=== PATIENT | female | born 1990 | race Hispanic/Latino ===

== ENCOUNTER 2024-11-07 18:12 | Emergency (ER) | payer OTHER ==
[~2024-11-07] VITALS: Ht 165.1 cm; Wt 100.2 kg
--- NOTE | 2024-11-07 19:22 | HMCIMG ---
FINGER(S) 2+VWS LT REASON: injury ring finger TECHNIQUE: 3 views were obtained. FINDINGS: There is dislocation of proximal interphalangeal joint of the left fourth finger. The distal segment is displaced posteriorly. There is a tiny evulsion fracture proximal base of the middle phalanx. IMPRESSION: 1. Posteriorly displaced dislocation of the proximal interphalangeal joint left fourth finger, there is a tiny chip fracture as well.
[2024-11-07] MEDS: ondanSETRON 4MG INJ IVP SCH (19:39)
[2024-11-07] MEDS: morPHINE 4 MG SYG IVP SCH (19:43)
[2024-11-07] MEDS: LIDOCAINE HCL 1% 20 ML VIAL INJ SCH (20:10)
--- NOTE | 2024-11-07 20:22 | ERN ---
ED Note History of Present Illness Stated Complaint: FINGER INJURY Chief Complaint: Finger Injury Time Seen by MD: 18:21 Time Seen by Midlevel: 18:21 Dictation: The patient is a 34-year-old female with no past medical history who presents to the emergency department with complaints of left ring finger pain after she injured or playing football. Denies any other injuries. Allergies: Coded Allergies: No Known Drug Allergies (Unverified Allergy, Unknown, 11/07/24) Home Meds Active Scripts Ibuprofen (Ibuprofen 800 mg Tab) 800 Mg Tab, 800 MG PO Q8H PRN for fever or pain for 30 Days, #30 TAB 0 Refills Prov:BIJAL DUNN [employer] MANAGER 11/07/24 Past Medical History Past Medical History: No Pertinent History Surgical History: None RN Note Reviewed/Agreed w/PFSH: Yes Review of System Dictation Constitutional: Negative for fever,chills, and weight loss Eyes: Negative for injury, pain,redness, and discharge ENT: Negative for injury,pain or swelling Cardiovascular: Negative for chest pain, palpitations, and edema Respiratory: Negative for shortness of breath, cough, and wheezing, Abdomen/GI: Negative for abdominal pain, nausea, vomiting, diarrhea, and constipation Back: Negative for injury and pain : Negative for injury, bleeding and discharge MS/Extremity: Negative for injury positive for left ring finger injury Skin: Negative for rash, and discoloration Neuro: Negative for headache, weakness, numbness, tingling, and seizure Psych: Negative for suicide ideation, homicidal ideation, and hallucinations Initial Vital Sign VS Vital Signs Date Time Temp Pulse Resp B/P (MAP) Pulse Ox O2 Delivery O2 Flow Rate FiO2 11/07/24 18:13 98.8 78 18 110/75 100 0 11/07/24 18:16 Room Air* 21 Physical Exam Dictation Vital Signs reviewed General Appearance: Alert, oriented x 3, no acute distress, well developed, nourished. Head and Face: non-traumatic. Eyes: PERRL, pink conjunctivas, eyelid no trauma, anterior chamber with arcus senilis. Ears: Pinnas intact and no signs of trauma or erythema ear canals clear and no discharge TM no erythema Nose: No discharge, no bleeding. Oropharynx: Mouth normal, tongue pink. pharynx clear,no erythema, tonsils no exudates, no abscesses noted, mucous membrane moist Neck: Supple, non-tender, no thyromegaly, no masses, no JVD, no bruits Breast:Deferred Chest:No tenderness, no crepitus, no paradoxical movement, no retractions Lungs:Clear, well-ventilated, symmetric, no rales, no wheezing, no rhonchi, no stridor, good breath sounds bilaterally Heart: Regular rate, regular rhythm, no murmur, no gallops Vascular: no peripheral edema, Abdomen: Soft, positive bowel sounds, nondistended, no guarding, nontender, no rebound, no masses no hepatomegaly, no splenomegaly, no Spaulding's sign, no hernias. Rectal: Deferred Genital: Deferred Neurological: Normal speech, motor function intact, sensory function intact Musculoskeletal: Neck nontender, full range of motion, back nontender, full range of motion, Extremities: nontender, full range of motion , left 4th digit deformity, limited ROM, cap refill less than 2 sec, no open wounds. Skin: Color pink, dry, no turgor, no rash, no lacerations, no abrasions, no contusions. Lymphatic: Deferred Results (Laboratory/Radiology) Laboratory/Radiology Laboratory Tests Test 11/07/24 19:33 Serum Test, Qualitative NEGATIVE (NEGATIVE) REASON: injury ring finger ORDERING PHYSICIAN: BIJAL DUNN [employer] MANAGER PROCEDURE: FINGER LT - FINGER(S) 2+VWS LT FINGER(S) 2+VWS LT REASON: injury ring finger TECHNIQUE: 3 views were obtained. FINDINGS: There is dislocation of proximal interphalangeal joint of the left fourth finger. The distal segment is displaced posteriorly. There is a tiny evulsion fracture proximal base of the middle phalanx. IMPRESSION: 1. Posteriorly displaced dislocation of the proximal interphalangeal joint left fourth finger, there is a tiny chip fracture as well. REASON: left ringle finger post reduction ORDERING PHYSICIAN: BIJAL DUNN [employer]CH[employer] SERVICES MANAGER PROCEDURE: FINGER LT - FINGER(S) 2+VWS LT FINGER(S) 2+VWS LT CLINICAL HISTORY: left ringle finger post reduction COMPARISON: None TECHNIQUE: AP lateral and oblique images were obtained. FINDINGS: No obvious fracture or dislocation. No joint effusion. The soft tissues appear edematous. No radiopaque foreign bodies. IMPRESSION: Successful reduction of previously identified fourth digit subluxation with soft tissue edema but no identified bony sequela. Labs Reviewed?: Yes ED Course ED Course Orders Procedure Category Date Status Time ,Urine Test LAB 11/07/24 Logged 18:23 Finger(S) 2+Vws Lt RAD 11/07/24 Resulted 18:31 Ondansetron 4mg Inj PHA 11/07/24 In Process (Zofran 4mg Inj) 19:00 Morphine 4mg Syg PHA 11/07/24 In Process (Morphine 4mg Syg) 19:00 Lidocaine Hcl 1% 20ml PHA 11/07/24 In Process Vial (Lidocaine Hc 20:00 Testing, LAB 11/07/24 Complete Serum Hcg 19:34 Finger(S) 2+Vws Lt RAD 11/07/24 Resulted 19:57 Finger Splint RENATO 11/07/24 In Process 20:56 Current Medications Medications (Trade) Dose Ordered Sig/Conner Route PRN Reason Start Time Stop Time Status Last Admin Dose Admin Lidocaine HCl (Lidocaine HCl 1% 20ml Vial) 10 ml ONCE INJ 11/07/24 20:00 12/07/24 19:59 11/07/24 20:10 Morphine Sulfate (morPHINE 4MG SYG) 4 mg ONCE IVP 11/07/24 19:00 11/07/24 23:59 11/07/24 19:43 Ondansetron HCl (zoFRAN 4MG INJ) 4 mg ONCE IVP 11/07/24 19:00 11/07/24 23:59 11/07/24 19:39 Vital Signs Date Time Temp Pulse Resp B/P (MAP) Pulse Ox O2 Delivery O2 Flow Rate FiO2 11/07/24 18:16 98.8 78 18 110/75 100 Room Air* 0 21 11/07/24 18:13 98.8 78 18 110/75 100 0 Medical Decision Making MDM The patient is a 34-year-old female with no past medical history who presents to the emergency department with complaints of left ring finger pain after she injured or playing football. Denies any other injuries. X-ray shows posteriorly displaces location of the proximal interphalangeal joint of unless 4th finger with a chip fracture . Finger was reduced, patient tolerated well. Patient instructed to follow up with PCP for ortho referral. Differential diagnosis: Finger dislocation, fracture finger, finger contusion Need for hospitalization: Patient does not meet criteria for hospitalization. There are no social concerns with this patient. DX & DISP Disposition: Discharge Departure Impression: Primary Impression: Dislocation, finger closed Additional Impressions: Dislocation of left ring finger, Fracture of finger, left, closed Condition: Stable Scripts Ibuprofen (Ibuprofen 800 mg Tab) 800 Mg Tab 800 MG PO Q8H PRN for fever or pain for 30 Days, #30 TAB 0 Refills Prov: BIJAL DUNN 11/07/24 Referrals: SELF,REFERRAL (PCP) Time of Disposition: 20:59 Please follow up with the primary doctor in 1-2 days. Please return to ER if symptoms worsen. You would need an orthopedic referral by your PCP. FOLLOW-UP WITH PRIMARY CARE PROVIDER IN 1 TO 2 DAYS. TAKE MEDICATIONS DIRECTED HERE IN THE EMERGENCY ROOM. OKAY TO CONTINUE HOME MEDICATIONS UNLESS OTHERWISE DISCUSSED DURING YOUR VISIT IN THE EMERGENCY ROOM TODAY. RETURN TO YOUR NEAREST EMERGENCY ROOM IF SYMPTOMS WORSEN OR IF THERE IS NO IMPROVEMENT. CALL 911 IF YOU NEED IMMEDIATE ASSISTANCE. TAKE TYLENOL OR MOTRIN [id number] NEEDED AND IF NO CONTRAINDICATIONS ARE PRESENT. INCREASE ORAL HYDRATION. A WOUND CULTURE OR URINE CULTURE WAS ORDERED HERE IN THE EMERGENCY ROOM DEPARTMENT PLEASE FOLLOW-UP WITH PRIMARY CARE PROVIDER AND ADVISE THEM TO GET REPEAT PORTS FROM OUR FACILITY. IF YOU HAD ANY JUAN WRAP/SPLINTS THAT WERE APPLIED HERE, PLEASE DO NOT REMOVE THEM UNTIL YOU SEE YOUR PRIMARY CARE OR SPECIALTY. I have reviewed the case, and I agree with, Diagnosis and Plan BIJAL DUNN Nov 07, 2024 20:22
[2024-11-07] MEDS ORDERED: IBUP-2077 PO (21:16)
--- NOTE | 2024-11-07 21:19 | HMCIMG ---
FINGER(S) 2+VWS LT CLINICAL HISTORY: left ringle finger post reduction COMPARISON: None TECHNIQUE: AP lateral and oblique images were obtained. FINDINGS: No obvious fracture or dislocation. No joint effusion. The soft tissues appear edematous. No radiopaque foreign bodies. IMPRESSION: Successful reduction of previously identified fourth digit subluxation with soft tissue edema but no identified bony sequela.
[2024-11-07 22:10] VITALS: BP 126/71; PULSE 74; RESP 18; TEMP 98.2; O2SAT 100
== END 2024-11-07 22:25 | disposition home or self-care (01) ==
LOC: EDH 18:12
DX: S62.615A Displaced fracture of proximal phalanx of left ring finger, initial encounter for closed fracture (principal); S63.255A Unspecified dislocation of left ring finger, initial encounter; X58.XXXA Exposure to other specified factors, initial encounter; Y93.61 Activity, american tackle football; Y92.89 Other specified places as the place of occurrence of the external cause; Y99.8 Other external cause status
CPT/HCPCS: 99284; 26770; 96374; 96375; 84703; 36415; 73140 ×2; J2405; J2270; 29130